=== PATIENT | female | born 1995 | race Caucasian/White ===

== ENCOUNTER 2017-08-01 12:39 | Emergency (ER) | payer BC ==
--- NOTE | 2017-08-01 12:49 | EDPHY ---
H & P Time Seen by Provider: 08/01/17 12:47 HPI/ROS: CHIEF COMPLAINT: Syncope HISTORY OF PRESENT ILLNESS: 21-year-old female presents to the emergency department after having multiple syncopal episodes at home. The patient states that she went to bed feeling like she was having a little bit of pain in her back and was having some discomfort with urinating. She states this morning she got up and was walking to the bathroom and then had a syncopal episode. She did not fall to the ground or hit her head. She lowered herself to the ground. She states then when she tried to walk back to her room to get her phone she had another syncopal episode. She denies hitting her head or losing consciousness. Denies pain in her chest or difficulty breathing. Denies abdominal pain. No nausea or vomiting. Last menstrual period was 1 week ago and she denies . She tells me that she has been fasting for an upcoming "bikini competition" and typically tries not to eat until around 2:00 p.m.. REVIEW OF SYSTEMS: Constitutional: No fever, no chills. Eyes: No double or blurry vision. ENT: No sore throat. Respiratory: No cough, no shortness of breath. Cardiac: No chest pain. Gastrointestinal: No abdominal pain, vomiting or diarrhea. Genitourinary: Dysuria Musculoskeletal: No neck or back pain. Skin: No rashes. Neurological: No headache. Past Medical/Surgical History: Negative Social History: [employer] student Physical Exam: General Appearance: Alert, no distress. No visible signs of trauma to her head. She is mentating normally and answering questions appropriately Eyes: Pupils equal and round. Extraocular motions are all intact. ENT: Mouth: Mucous membranes moist. Respiratory: No wheezing, rhonchi, or rales, lungs are clear to auscultation. Cardiovascular: Regular rate and rhythm. Gastrointestinal: Abdomen is soft and nontender, no masses, no rebound or guarding, bowel sounds normal. Neurological: Alert and oriented x 3, cranial nerves II through XII grossly intact Skin: Warm and dry, no rashes. Musculoskeletal: Nontender to palpate along the cervical, thoracic or lumbar spine. Neck is supple. Extremities: Full range of motion and no peripheral edema. Psychiatric: Patient is oriented X 3, there is no agitation. Constitutional: Initial Vital Signs Temperature (C) 36.6 C 08/01/17 12:52 Heart Rate 58 L 08/01/17 12:52 Respiratory Rate 16 08/01/17 12:52 Blood Pressure 113/72 08/01/17 12:52 O2 Sat (%) 96 08/01/17 12:52 O2 Delivery Mode Room Air Allergies/Adverse Reactions: clobetasol Allergy (Verified 08/01/17 12:54) Medical Decision Making ED Course/Re-evaluation: 21-year-old female presents to the emergency department after syncopal episodes. EKG reveals normal sinus rhythm. This was reviewed by Dr. Mushtaq Benedict. Laboratory studies are all within normal limits. The patient had symptoms of dysuria yesterday and urinalysis reveals no signs of infection. The patient was treated with IV normal saline. She was drinking some juice and eating crackers and peanut butter. She was feeling better. She ambulated to the bathroom without any problems. I think the patient's symptoms are likely vasovagal syncope related. She did tell me that she has been trying too fast and not eat until around 2:00 p.m. And this may have contributed to her syncopal episode. Patient was encouraged to eat and drink regularly. She was also encouraged to return sooner if she had any change in symptoms or felt worse. Differential Diagnosis: Syncope including but not limited to vasovagal syncope, arrhythmia, dehydration , and blood loss. - Data Points Laboratory Results: Laboratory Results 08/01/17 12:39 08/01/17 12:39 08/01/17 08/01/17 08/01/17 14:32 12:39 12:39 WBC RBC Hgb Hct MCV MCH MCHC RDW Plt Count MPV Neut % (Auto) Lymph % (Auto) [place] % (Auto) Eos % (Auto) Baso % (Auto) Nucleat RBC Rel Count Absolute Neuts (auto) Absolute Lymphs (auto) Absolute Monos (auto) Absolute Eos (auto) Absolute Basos (auto) Absolute Nucleated RBC Immature Gran % Immature Gran # Sodium 141 mEq/L mEq/L (135-145) Potassium 4.2 mEq/L mEq/L (3.5-5.2) Chloride 105 mEq/L mEq/L (97-110) Carbon Dioxide 25 mEq/l mEq/l (22-31) Anion Gap 11 mEq/L mEq/L (8-16) BUN 24 mg/dL H mg/dL (7-23) Creatinine 0.9 mg/dL mg/dL (0.6-1.0) Estimated GFR > 60 Glucose 108 mg/dL H mg/dL (70-100) Calcium 9.6 mg/dL mg/dL (8.5-10.4) Beta HCG, Qual NEGATIVE Urine Color YELLOW Urine Appearance CLEAR Urine pH 6.0 (5.0-7.5) Ur Specific [place] 1.014 (1.002-1.030) Urine Protein NEGATIVE (NEGATIVE) Urine Ketones NEGATIVE (NEGATIVE) Urine Blood NEGATIVE (NEGATIVE) Urine Nitrate NEGATIVE (NEGATIVE) Urine Bilirubin NEGATIVE (NEGATIVE) Urine Urobilinogen NEGATIVE EU EU (0.2-1.0) Ur Leukocyte Esterase NEGATIVE (NEGATIVE) Urine RBC NONE SEEN /hpf /hpf (0-3) Urine WBC 1-3 /hpf /hpf (0-3) Ur Epithelial Cells TRACE /lpf /lpf (NONE-1+) Urine Mucus TRACE /lpf /lpf (NONE-1+) Urine Glucose NEGATIVE (NEGATIVE) 08/01/17 12:39 WBC 6.09 10^3/uL 10^3/uL (3.80-9.50) RBC 4.56 10^6/uL 10^6/uL (4.18-5.33) Hgb 13.9 g/dL g/dL (12.6-16.3) Hct 41.5 % % (38.0-47.0) MCV 91.0 fL fL (81.5-99.8) MCH 30.5 pg pg (27.9-34.1) MCHC 33.5 g/dL g/dL (32.4-36.7) RDW 12.9 % % (11.5-15.2) Plt Count 295 10^3/uL 10^3/uL (150-400) MPV 9.5 fL fL (8.7-11.7) Neut % (Auto) 44.8 % % (39.3-74.2) Lymph % (Auto) 45.5 % H % (15.0-45.0) [place] % (Auto) 7.1 % % (4.5-13.0) Eos % (Auto) 1.1 % % (0.6-7.6) Baso % (Auto) 0.8 % % (0.3-1.7) Nucleat RBC Rel Count 0.0 % % (0.0-0.2) Absolute Neuts (auto) 2.73 10^3/uL 10^3/uL (1.70-6.50) Absolute Lymphs (auto) 2.77 10^3/uL 10^3/uL (1.00-3.00) Absolute Monos (auto) 0.43 10^3/uL 10^3/uL (0.30-0.80) Absolute Eos (auto) 0.07 10^3/uL 10^3/uL (0.03-0.40) Absolute Basos (auto) 0.05 10^3/uL 10^3/uL (0.02-0.10) Absolute Nucleated RBC 0.00 10^3/uL 10^3/uL (0-0.01) Immature Gran % 0.7 % % (0.0-1.1) Immature Gran # 0.04 10^3/uL 10^3/uL (0.00-0.10) Sodium Potassium Chloride Carbon Dioxide Anion Gap BUN Creatinine Estimated GFR Glucose Calcium Beta HCG, Qual Urine Color Urine Appearance Urine pH Ur Specific [place] Urine Protein Urine Ketones Urine Blood Urine Nitrate Urine Bilirubin Urine Urobilinogen Ur Leukocyte Esterase Urine RBC Urine WBC Ur Epithelial Cells Urine Mucus Urine Glucose Medications Given: Discontinued Medications Sodium Chloride (Ns) 1,000 mls @ 0 mls/hr IV ONCE ONE PRN Reason: Wide Open Stop: 08/01/17 13:25 Last Admin: 08/01/17 13:15 Dose: 1,000 mls Departure - Departure Disposition: Home, Routine, Self-Care Clinical Impression: Syncope Qualifiers: Syncope type: unspecified Qualified Code(s): R55 - Syncope and collapse Condition: Good Instructions: Syncope (ED) Additional Instructions: Diet and activity as tolerated. Return to the emergency department if you develop recurring syncope, vomiting, altered mental status, chest pain, or if you feel worse in any way. Referrals: Patient,NotPresent [Unknown] - As per Instructions
--- NOTE | 2017-08-01 12:52 | CPEKG ---
Heart Rate: 56 RR Interval: 1071 P-R Interval: 192 QRSD Interval: 98 QT Interval: 440 QTC Interval: 425 P [place]: 59 QRS [place]: 77 T Wave [place]: 40 EKG Severity - NORMAL ECG - EKG Impression: SINUS RHYTHM Electronically Signed By: Nikos Stout 02-Aug-2017 19:13:22
[2017-08-01 12:57] LABS: PLATELET COUNT 295 10^3/uL (150-400)
[2017-08-01] MEDS ORDERED: NS 1,000 ML IV ONE (13:24)
[2017-08-01 15:43] VITALS: BP 104/58
== END 2017-08-01 15:43 | disposition home or self-care (01) ==
DX: R55 Syncope and collapse (principal)

== ENCOUNTER 2018-08-23 21:52 | Emergency (ER) | payer BC ==
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
[2018-08-23 22:09] LABS: PLATELET COUNT 366 10^3/uL (150-400)
[2018-08-23] MEDS ORDERED: IOPAMIDOL (ISOVUE-300) 100 ML BTL ONE (22:50)
[2018-08-24 00:11] VITALS: BP 113/71
== END 2018-08-24 00:10 | disposition home or self-care (01) ==
LOC: EDUNIT#
DX: S30.1XXA Contusion of abdominal wall, initial encounter (principal); S80.811A Abrasion, right lower leg, initial encounter; V49.49XA Driver injured in collision with other motor vehicles in traffic accident, initial encounter; Y92.410 Unspecified street and highway as the place of occurrence of the external cause; Z90.49 Acquired absence of other specified parts of digestive tract; Z90.89 Acquired absence of other organs; Z97.5 Presence of (intrauterine) contraceptive device
CPT/HCPCS: Q9967